=== PATIENT | male | born 1960 | race Caucasian/White ===

== ENCOUNTER → 2016-11-02 | Outpatient (CLI) | payer BC ==
[2016-11-02 14:43] LABS: Partial Thromboplastin Time 23.4 sec (22.0-30.0); Prothrombin Time 10.1 sec (9.0-12.0)
[2016-11-02 14:49] LABS: Basophils # (A) 0.1 k/uL (0-0.2); Basophils % (A) 1 %; CHCM 35.4; Eosinophils # (A) 0.1 k/uL (0-0.7); Eosinophils % (A) 2 %; HDW 2.78; HGB 16.2 gm/dL (13.0-17.5); Luc # (Auto) 0.19; Luc % (Auto) 3; Lymphocytes # (A) 1.8 k/uL (1.0-4.8); Lymphocytes % (A) 27 %; MCH 31.2 pg (25.0-35.0); MCHC 34.5 g/dL (31.0-37.0); MCV 90.6 fL (80.0-100.0); Mean Platelet Volume 6.2; Monocytes # (A) 0.4 k/uL (0-1.0); Monocytes % (A) 7 %; Neutrophils # (A) 3.9 k/uL (1.3-7.7); Neutrophils % (A) 60 %; RBC 5.18 m/uL (4.30-5.90); RDW 12.5 % (11.5-15.5); WBC 6.5 k/uL (3.8-10.6); WBC (Perox) 6.77
[2016-11-02 14:54] LABS: ALT 35 U/L (21-72); AST 19 U/L (17-59); Alkaline Phosphatase 55 U/L (38-126); Anion Gap 9 mmol/L; Blood Urea Nitrogen 24 mg/dL (9-20); Calcium 9.4 mg/dL (8.4-10.2); Carbon Dioxide 30 mmol/L (22-30); Chloride 102 mmol/L (98-107); Glucose 73 mg/dL (74-99); Non-African American GFR(MDRD) >60 (>60 ml/min/1.73 sqM); Potassium 4.6 mmol/L (3.5-5.1); Sodium 141 mmol/L (137-145); Total Bilirubin 0.5 mg/dL (0.2-1.3); Total Protein 6.8 g/dL (6.3-8.2)
[2016-11-02 15:14] LABS: Appearance,Urine Clear (Clear); Bilirubin,Urine Negative (Negative); Glucose,Urine (UA) Negative (Negative); Ketones,Urine Negative (Negative); Leukocyte Esterase,Urine Negative (Negative); Nitrite,Urine Negative (Negative); Protein,Urine Negative (Negative); Specific Gravity,Urine 1.013 (1.001-1.035); UA Billing (MACRO vs. MICRO) CHEM; Urobilinogen,Urine <2.0 mg/dL (<2.0)
== END | disposition home or self-care (01) ==
LOC: LABPAT 14:12
PROVIDERS: ATTEND Orthopaedic Surgery
DX: Z01.812 Encounter for preprocedural laboratory examination (principal)
CPT/HCPCS: 80053; 81003; 85025; 85610; 85730; 86850; 86900; 86901; 87070

== ENCOUNTER 2016-11-14 11:11 | Inpatient (IN) | payer BC ==
[2016-11-03 10:20] VITALS: BMI 23.6
[~2016-11-14 11:11] MED LIST: ACETAMINOPHEN TAB 500 MG TAB PO ONE; HYDROmorphone 1 MG/ML 1 ML SYRINGE IVP PRN; LIDOCAINE 1% 20 ML VIAL (10MG/ML) FOR IV START INTRADERMA PRN; MELOXICAM 7.5 MG TAB PO ONE; ONDANSETRON 4 MG/2 ML VIAL IVP ONE; TRANEXAMIC ACID 1,000 MG in SODIUM CHLORIDE 0.9% 100 ML IVPB ONE; ceFAZolin 2 GM in SODIUM CHLORIDE 0.9% 100 ML IVPB ONE
[2016-11-14] MEDS ORDERED: LACTATED RINGERS 1,000 ML IV ONE ×3 (12:24→14:23)
[2016-11-14] MEDS ORDERED: DEXAMETHASONE SOD PHOS (MDV) 100 MG/10 ML VIAL IVP ONE (12:25)
[2016-11-14] MEDS ORDERED: diphenhydrAMINE 50 MG/ML 1 ML VIAL ONE (13:47)
[2016-11-14] MEDS ORDERED: SODIUM CHLORIDE 0.9% 100 ML BAG ONE (13:47)
[2016-11-14] MEDS ORDERED: PHENYLEPHRINE-0.9% NACL SYG 1 MG/10 ML SYRINGE ONE (13:47)
[2016-11-14] MEDS ORDERED: ePHEDrine 50 MG/ML 1 ML AMP ONE (13:47)
[2016-11-14] MEDS ORDERED: fentaNYL (PF) 50 MCG/ML 2 ML AMP ONE (13:47)
[2016-11-14] MEDS ORDERED: TRANEXAMIC ACID 1,000 MG/10 ML VIAL ONE (13:47)
[2016-11-14] MEDS ORDERED: PROPOFOL 10 MG/ML 20 ML VIAL IV ONE (13:47)
[2016-11-14] MEDS ORDERED: MIDAZOLAM 2 MG/2 ML VIAL ONE (13:47)
[2016-11-14] MEDS ORDERED: ONDANSETRON 4 MG/2 ML VIAL IVP PRN (13:55)
[2016-11-14] MEDS ORDERED: HYDROcodone/APAP 5-325MG 1 EACH TAB PO PRN (13:55)
[2016-11-14] MEDS ORDERED: NALOXONE 0.4 MG/ML 1 ML VIAL IV PRN (13:55)
[2016-11-14] MEDS ORDERED: HYDROmorphone 1 MG/ML 1 ML SYRINGE IVP PRN ×3 (13:55)
[2016-11-14] MEDS ORDERED: MAGNESIUM HYDROXIDE 2,400 MG/10 ML CUP PO PRN (13:55)
[2016-11-14] MEDS ORDERED: DIAZEPAM 5 MG TAB PO PRN ×2 (13:55)
[2016-11-14] MEDS: ROPIVACAINE 246.25 MG, EPINEPHrine 0.5 MG, KETOROLAC 30 MG, cloNIDine HCL/PF 80 MCG, WA... MISCELLANE ONE ×10 (14:22→15:07)
[2016-11-14] MEDS ORDERED: ceFAZolin 3,000 MG in SODIUM CHLORIDE 0.9% IRRIGATIO 3,000 ML IRRIGATION ONE (14:24)
--- NOTE | 2016-11-14 16:02 | P.OP ---
Date of Procedure: 11/14/16 Preoperative Diagnosis: Failed right hip hemiarthroplasty Postoperative Diagnosis: Failed right hip hemiarthroplasty Procedure(s) Performed: Revision right total hip arthroplasty Implants: Biomet G7 acetabular shell, 58 mm, G, multihole Maria Guadalupe bone screw 6.5 mm diameter, 25 mm 2 Biomet G7 dual mobility acetabular liner neutral 46 mm, size G Biomet dual mobility bearing, E1 Antioxidant infused 28 mm, 46 mm, G Babak femoral head 14 x 16 taper, +3, 28 mm All components were press-fit The articulation is metal on polyethylene Anesthesia: spinal Surgeon: Rigo Mccarthy Pump Oiler #1: Marguerite Gandara Estimated Blood Loss (ml): 250 (112 mL returned with Cell Saver) Pathology: none sent Condition: stable Disposition: PACU Indications for Procedure: This is a 55-year-old gentleman has a history of a hemiarthroplasty of his right hip many years ago. 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 After discussing the surgical and nonsurgical treatment options with him at length he wishes to proceed with a revision of his right total hip arthroplasty and informed consent was obtained. Operative Findings: The operative findings consistent with a failed right hemiarthroplasty with significant arthrosis of the acetabulum. The femoral component appeared well fixed. Description of Procedure: Patient was seen and evaluated in the preoperative area, consent was reviewed, and the surgical site was marked with a skin marker. Patient was then brought to the operating room and given prophylactic antibiotics intravenously. 1 g of Tranexamic acid was also given. A spinal anesthetic was administered by the anesthesia department. The patient was then placed on the operative table and placed in the lateral decubitus position with the bony prominences well-padded. The hip area was then prepped and draped in usual sterile fashion. A universal timeout was then performed, which confirmed the patient's name, surgical site, ALLERGIES, and procedure being performed. Next the incision site was located in the lateral aspect of the hip, centered at the tip of the greater trochanter.. The skin and subcutaneous tissues were sharply incised. A portion of his prior incision was utilized, with the scar being excised. Incision was carefully dissected down to the fascia. This fascia was then incised in line with the incision. Next, a Charnley retractor was then placed in the abductors were identified. The anterior one third of the abductors was released off the trochanter and one large sleeve. The anterior hip capsule was then exposed. The capsule was then opened. The proximal femur was then visualized. The hip was then gently dislocated. The endo-head was then removed from the trunnion of the femoral component. The femoral stem was then inspected, and found to be well fixed. Attention was then turned to the acetabulum. The acetabulum was exposed, and the scar tissue was excised sharply with a knife. After the acetabulum was exposed, sequential reaming was then performed to good bed of bleeding cancellus bone. There were multiple areas of cystic changes in the acetabulum, and these were grafted with autologous bone. Next a trial was then placed and found to have a secure fit. The trial was then removed, and the final acetabular component was impacted at 40 of abduction and 20 anteversion and fully seated in the acetabulum. 2 screws were then placed in the acetabulum one superior dome and one in the posterior column. Next, a trial liner was then placed. A trial head was then placed on the femur and the hip is within reduced. The leg lengths were checked and found to be equal. Hip was then taken through full range of motion, was stable throughout. Next, the hip was gently dislocated, and the trials were removed. Acetabulum was then reexposed. The appropriate acetabular liner was then opened, and inserted in the acetabular component. The dual mobility component was then preassembled. The trunnion was then cleaned and dried and the femoral head was impacted on the trunnion. Hip was then reduced and the hip was then taken through range of motion and found to be stable throughout. Leg lengths were also checked, and found to be equal. The hip was then copiously irrigated with antibiotic solution with pulsatile lavage. The hip was then irrigated with Irrisept solution. The soft tissues were then injected with ropivacaine solution. A second dose of 1 g of Tranexamic acid was given. The abductors were then repaired with #5 Ethibond suture with drill holes to the bone. The fascia was closed with #2 strata fix suture. The subcutaneous tissue was closed with 3-0 Vicryl. The subcuticular tissue was closed with 30 strata fix suture. The skin was then closed with Dermabond tape. The patient was then transferred to the recovery room in stable condition. The Asst. Marguerite Gandara was required due to the complexity of surgery, and the need for skilled assistant toddler teacher for positioning, draping, exposure, retraction, and closure of the wound.and closure of the wound.
--- NOTE | 2016-11-14 16:24 | XR ---
EXAMINATION TYPE: XR Hip Limited RT DATE OF EXAM: 11/14/2016 4:16 PM CLINICAL HISTORY: Right hip pain and osteoarthritis. TECHNIQUE: 2 AP portable views of right hip are obtained immediately postoperatively. COMPARISON: None. FINDINGS: Metallic hardware from right hip arthroplasty is seen and appears satisfactory in alignment and position. Some lucency along superior lateral portion of acetabulum is present. There is eviden ce of recent surgery with subcutaneous gas and soft tissue swelling noted laterally. IMPRESSION: Metallic hardware from right hip arthroplasty is satisfactory in position.
[2016-11-14] MEDS: LACTATED RINGERS 1,000 ML IV SCH ×2 (16:41→23:07)
[2016-11-14] MEDS: ceFAZolin 2 GM in SODIUM CHLORIDE 0.9% 100 ML IVPB SCH (18:01)
[2016-11-14] MEDS: SODIUM CHLORIDE 0.9% 1,000 ML IV SCH ×2 (18:02→22:37)
[2016-11-14] MEDS: ASPIRIN 325 MG TAB PO SCH (20:29)
[2016-11-14] MEDS: hydrOXYzine PAMOATE 25 MG CAP PO PRN (20:33)
[2016-11-14] MEDS: HYDROcodone/APAP 5-325MG 1 EACH TAB PO PRN (20:33)
[2016-11-14] MEDS ORDERED: SENNOSIDES-DOCUSATE SODIUM 1 EACH TAB PO SCH (21:00)
[2016-11-15] MEDS: ceFAZolin 2 GM in SODIUM CHLORIDE 0.9% 100 ML IVPB SCH (02:12)
[2016-11-15] MEDS: HYDROcodone/APAP 5-325MG 1 EACH TAB PO PRN ×3 (05:13→16:06)
[2016-11-15] MEDS: hydrOXYzine PAMOATE 25 MG CAP PO PRN (05:14)
[2016-11-15] MEDS: ASPIRIN 325 MG TAB PO SCH (07:01)
[2016-11-15 07:38] LABS: Basophils % (A) 0 %; CH 31.9; Eosinophils # (A) 0.1 k/uL (0-0.7); Eosinophils % (A) 1 %; HCT 37.8 % (39.0-53.0); Luc # (Auto) 0.14; Luc % (Auto) 2; Lymphocytes # (A) 1.2 k/uL (1.0-4.8); Lymphocytes % (A) 16 %; MCH 30.9 pg (25.0-35.0); MCHC 33.7 g/dL (31.0-37.0); MCV 91.7 fL (80.0-100.0); Mean Platelet Volume 6.2; Monocytes # (A) 0.6 k/uL (0-1.0); Monocytes % (A) 7 %; Neutrophils # (A) 5.9 k/uL (1.3-7.7); Neutrophils % (A) 75 %; RBC 4.12 m/uL (4.30-5.90); RDW 12.8 % (11.5-15.5); WBC 7.9 k/uL (3.8-10.6); WBC (Perox) 8.23
[2016-11-15 07:49] LABS: HGB 12.7 gm/dL (13.0-17.5)
[2016-11-15] MEDS ORDERED: MELOXICAM 7.5 MG TAB PO SCH (09:00)
--- NOTE | 2016-11-15 09:43 | P.DS ---
Providers Date of admission: 11/14/16 11:11 Expected date of discharge: 11/15/16 Attending physician: Rigo Mccarthy Consults: 11/14/16 13:55 Consult Physician Routine Consulting Provider: Darshan Still Consult Reason/Comments: medical management Do you want consulting provider notified?: Yes Primary care physician: Stated None - Discharge Diagnosis(es) (1) Status post revision of total hip Current Visit: Yes Status: Acute (2) Failed total hip arthroplasty Current Visit: Yes Status: Acute Hospital Course: This is a 55-year-old gentleman with history of hemiarthroplasty of his right hip several years ago. Patient began having significant pain in the hip and x- rays revealed significant osteoarthritis of the acetabulum. After discussion consideration the patient elected to proceed with surgical intervention. Patient was seen preoperatively medically cleared for surgery by his primary care physician. Admitted to [facility] on 11/14/2016 and underwent revision of right total hip arthroplasty. The procedure was performed without competitions or sequelae. The patient has done well postoperatively. He is seen and evaluated at bedside this morning. His pain is well-controlled. He's been up ambulating with physical therapy. He has no other complaints at this time. Dressing is clean dry and intact. Incision appears fine with no erythema or active drainage. Prineo tape is intact. Thigh and calf is soft and nontender. He is able to perform active motion at the knee. Sensation and circulatory status is intact. The patient is orthopedically stable for possible discharge later this afternoon if he is doing well physical therapy and pain is well-controlled. Pertinent Studies: Laboratory Tests 11/15/16 07:01 WBC 7.9 RBC 4.12 L Hgb 12.7 L D Hct 37.8 L Patient Condition at Discharge: Good Plan - Discharge Summary New Discharge Prescriptions: Aspirin EC [Ecotrin] 325 mg PO BID #60 tablet. HYDROcodone/APAP 7.5-325MG [[place] 7.5] 1 - 2 each PO Q6HR PRN #90 tab PRN Reason: Pain Sennosides-Docusate Sodium [Senokot-S] 2 tab PO DAILY #60 tablet Discharge Medication List Aspirin [Adult Low Dose Aspirin EC] 81 mg PO DAILY 11/03/16 [History] Aspirin EC [Ecotrin] 325 mg PO BID #60 tablet. 11/15/16 [Rx] HYDROcodone/APAP 7.5-325MG [[place] 7.5] 1 - 2 each PO Q6HR PRN #90 tab 11/15/16 [ Rx] Sennosides-Docusate Sodium [Senokot-S] 2 tab PO DAILY #60 tablet 11/15/16 [Rx] Follow up Appointment(s)/Referral(s): Rigo Mccarthy DO [Doctor of Osteopathic Medicine] - 2 Weeks Activity/Diet/Wound Care/Special Instructions: Weightbearing as tolerated with walker Daily dressing changes Keep incision clean and dry Hold 81 mg aspirin while taking Aspirin 325 mg of aspirin twice a day for 4 weeks. [facility] with questions or concerns [phone] Discharge Disposition: HOME WITH HOME HEALTH SERVICES
[2016-11-15 14:15] VITALS: BP 127/68; PULSE 78; RESP 17; TEMP 98.4
--- NOTE | 2016-11-15 18:38 | CONS ---
DATE OF CONSULTATION: 11/15/2016 REASON FOR CONSULTATION: Medical management requested by Dr. Mccarthy. CONSULTATION: This pleasant 55-year-old patient who has undergone revision of right total hip arthroplasty. Patient's chronic stable medical conditions include Raynaud's. The patient denies any cardiac history. Post procedure sitting up, comfortable. No chest pain, short of breath, nausea or vomiting. REVIEW OF SYSTEMS: CONSTITUTIONAL: None. HEENT: None. RESPIRATORY: None. CARDIOVASCULAR: None. GASTROINTESTINAL: None. GENITOURINARY: None. MUSCULOSKELETAL: Pain in the joints. Dermatologic: None. HEMATOLOGIC: None. LYMPHATIC: None. PSYCHIATRY: None. NEUROLOGICAL: None. Past medical history: Osteoarthritis, Raynaud's. PAST SURGICAL HISTORY: Both hips replaced, left ( ) redone. SOCIAL HISTORY: . Patient in charge of recycling from industry. No smoking. Alcohol none. Family history of DVT . Home medications: 1. Aspirin 81 mg a day. 2. Senokot-S 2 tablets daily. 3. [place] 7.5 ( ) tablets q.6h p.r.n. 4. Aspirin 325 p.o. b.i.d. ALLERGIES: None. On examination, temperature 97.7, pulse 77, respiratory rate 16, blood pressure 120/68, pulse ox 98% on room air. GENERAL APPEARANCE: Sitting up in a chair, comfortable. EYES: Pupils equal. Conjunctivae normal. HEENT: External appearance of nose and ears normal. Oral cavity normal. NECK: JVD not raised. Mass not palpable. RESPIRATORY: Effort normal. Lungs are clear. CARDIOVASCULAR: First and second sounds normal. No edema. ABDOMEN: Soft, nontender. Liver and spleen not palpable. LYMPHATIC: No lymph nodes palpable in neck or axillae. PSYCHIATRY: Alert and oriented times three. Mood and affect normal. INVESTIGATIONS: Hemoglobin 12.7, white count 7.9. ASSESSMENT: 1. Revision right total hip arthroplasty. 2. Raynaud's disease. PLAN: Patient ( ) DVT prophylaxis. Pain is controlled. Care was discussed with the patient. Patient is to follow up with family doctor upon discharge.
== END 2016-11-15 17:42 | disposition home health service (06) | DRG 468 ==
LOC: 2ORMAIN 11:11 → 3SUR 16:22
PROVIDERS: ADMIT Orthopaedic Surgery; ATTEND Orthopaedic Surgery
PROC: 0SR902A Replacement of Right Hip Joint with Metal on Polyethylene Synthetic Substitute, Uncemented, Open Approach (ICD-10-PCS; principal; 2016-11-14 13:00)
PROC: 0SP90JZ Removal of Synthetic Substitute from Right Hip Joint, Open Approach (ICD-10-PCS; principal; 2016-11-14 13:00)
DX: T84.090A Other mechanical complication of internal right hip prosthesis, initial encounter (principal); I73.00 Raynaud's syndrome without gangrene; Y79.2 Prosthetic and other implants, materials and accessory orthopedic devices associated with adverse incidents; M19.90 Unspecified osteoarthritis, unspecified site; Z79.82 Long term (current) use of aspirin; Z82.49 Family history of ischemic heart disease and other diseases of the circulatory system; Z79.899 Other long term (current) drug therapy
CPT/HCPCS: 73501; 85025; 86850; 86891; 86900; 86901